=== PATIENT | female | born 1950 | race Caucasian/White ===

== ENCOUNTER 2021-01-30 16:19 | Emergency (ER) | payer MEDICARE, SELFPAY ==
--- NOTE | ~2021-01-30 | XR_ITS ---
XR chest 1V portable DATE: 01/30/2021 18:16 INDICATION: Left hand numbness. History of transient ischemic attack. TECHNIQUE: PA chest COMPARISON: None FINDINGS: Normal heart size. Is aortic calcification and mild tortuosity. No hilar or mediastinal enl argement. The lungs are moderately hyperinflated but clear of infiltrate or consolidation. No pleural effusion or pulmonary vascular congestion or pneumothorax. Degenerative spurring of the thoracic spine. Diffuse osteopenia. IMPRESSION: No active cardiopulmonary disease Aortic atherosclerosis Reviewed, dictated and finalized at location A.
[2021-01-30 17:12] VITALS: BP 149/91; PULSE 80; RESP 18; TEMP 36.8; O2SAT 96
--- NOTE | 2021-01-30 17:15 | ECG_ITS ---
Measurements Intervals Issue Rate: 72 P: -37 PA: 94 QRS: -4 QRSD: 83 T: 4 QT: 385 QTc: 424 Interpretive Statements ECTOPIC ATRIAL RHYTHM DELAYED PRECORDIAL R/S TRANSITION BORDERLINE T WAVE ABNORMALITY- ANTEROLAT/INF LEADS BASELINE ARTIFACT- I, II, III, AVR, AVL, AVF ABNORMAL ECG Electronically Signed On 01-30-2021 20:05:34 CDT by Mario Man D.O.
[2021-01-30 17:29] LABS: Basophils Absolute Auto 0.1 K/mm3 (0.0-0.1); Basophils Percent Auto 0.8 % (0.2-1.2); Eosinophils Absolute Auto 0.1 K/mm3 (0-0.3); Eosinophils Percent Auto 0.6 % (0-4.4); Hematocrit 38.1 % (37.0-47.0); Immature Granulocyte Absolute 0.05 K/mm3 (0.00-0.031); Immature Granulocyte Percent A 0.5 % (0-0.5); Lymphocytes Absolute Auto 2.06 K/mm3 (0.9-3.2); Lymphocytes Percent Auto 18.9 % (18.3-44.2); Mean Corpuscular HGB Conc 34.1 g/dl (32-36); Mean Corpuscular Hemoglobin 33.2 pg (26-34); Mean Corpuscular Volume 97.4 fl (80-100); Monocytes Percent Auto 9.3 % (2.6-8.5); Neutrophils Absolute Auto 7.6 K/mm3 (1.3-6.7); Neutrophils Percent Auto 69.9 % (45.5-73.1); Platelet Count Result 495 k/mm3 (150-375); Red Blood Count 3.91 M/mm3 (4.2-5.4); Red Cell Distribution Width 13.8 % (11.5-14.5); White Blood Count 10.9 K/mm3 (4.5-10.0)
[2021-01-30 17:55] LABS: Anion Gap 8 mmol/L (8-16); Blood Urea Nitrogen 21 mg/dL (7-17); Calcium 9.4 mg/dL (8.4-10.2); Carbon Dioxide 27 mmol/L (22-30); Chloride 100 mmol/L (98-107); Estimated CRCL calculation 37 ml/min; Estimated Glomerular Filt Rate 55; Glucose 115 mg/dL (65-110); Potassium 3.7 mmol/L (3.4-5.0); Sodium 135 mmol/L (137-145)
[2021-01-30 17:56] LABS: INR 0.9; Prothrombin Time 12.5 Seconds (11.1-14.7)
[2021-01-30 17:57] LABS: Partial Thromboplastin Time 25.7 SECONDS (22.3-36.8)
[2021-01-30 18:01] LABS: Troponin I < 0.012 ng/mL (0.000-0.034)
--- NOTE | 2021-01-30 21:04 | PC.NURSE ---
patient left from triage area before seeing provider
== END 2021-01-30 21:11 | disposition left against medical advice (07) ==
LOC: ANHED 21:11
PROVIDERS: Emergency Provider Emergency Medicine
DX: R20.0 Anesthesia of skin (principal); Z86.73 Personal history of transient ischemic attack (TIA), and cerebral infarction without residual deficits; R94.31 Abnormal electrocardiogram [ECG] [EKG]; I70.0 Atherosclerosis of aorta
CPT/HCPCS: 36415; 71045; 80048; 84484; 85025; 85610; 85730; 93005; 99199

== ENCOUNTER 2021-01-31 11:20 | Emergency (ER) | payer MEDICARE, SELFPAY ==
[2021-01-31] VITALS (29 sets, daily range): BP systolic 143–174; BP diastolic 73–83; PULSE 68–100; RESP 13–23; TEMP 36.4–36.8; O2SAT 96–100
--- NOTE | ~2021-01-31 | CT_ITS ---
EXAMINATION: CTA BRAIN/CAROTID DATE: 01/31/2021 13:34 INDICATION: Possible stroke presenting with right hand tingling TECHNIQUE: Computed tomographic angiography (CTA) of the head and neck was performed with 100 mL Omni paque-350 intravenous contrast. Multiplanar reconstructions and maximum intensity projection 3D-recon structions of the carotid arteries and of the intracranial arteries were created by the technologist on a separate workstation. Precontrast CT of the head was also obtained. Automated exposure control and iterative reconstruction technique were employed.The dose-length product was 1591.56 mGy-cm. COMPARISON: None. FINDINGS: Carotid arteries: There is 30% stenosis of the right carotid bulb relative to normal distal artery lumen diameter (NASC ET criteria). A cervical right internal carotid artery distal to the bulb is tortuous. There is ather osclerotic calcifications at the left carotid bulb with 0% stenosis of the left carotid bulb relative to normal distal artery lumen diameter. The cervical left internal carotid artery is also tortuous. Atherosclerotic calcifications at the normal caliber aortic arch and origins of the great vessels yesenia sing from the arch without hemodynamically significant stenosis. No dissection. Goiter with several l ikely benign subcentimeter thyroid nodules. Cervical soft tissues are otherwise unremarkable. Severe cervical spondylosis. Mild emphysema in the visualized upper lungs. Head: Small old lacunar infarct at the right lentiform nucleus. No acute intracranial hemorrhage, acute inf arction or abnormal extra axial fluid collection. There is mild scattered white matter hypoattenuatio n consistent with chronic small vessel ischemic disease. Ventricles are normal and symmetric. No mas s/mass effect. Mild mucosal thickening in the left maxillary, right sphenoid and bilateral ethmoid si nuses. The orbits and mastoid air cells are normal. Intracranial arteries The left vertebral artery is dominant. Persistent origin of the posterior cerebral arteries wit h diminutive basilar artery distal to the takeoff of the bilateral superior cerebellar arteries which supplies a diminutive P1 segment. The right posterior cerebral artery is also supplied by similar si zed right posterior communicating artery. There is a nearly indiscernible diminutive left P1 segment with the majority of the flow to the left posterior cerebral artery supplied by a larger caliber left posterior communicating artery. Atherosclerotic calcification is seen at the bilateral carotid sipho ns. There is no hemodynamically significant stenosis in the vertebral, basilar and internal carotid a rteries. Bilateral A1 segments are patent. Cerebral arterial arborization appears symmetric. IMPRESSION: 1. 30% stenosis of the right carotid bulb relative to normal distal artery lumen diameter (NASCET cri teria). 2. 0% stenosis of the left carotid bulb relative to normal distal artery lumen diameter. 3. Normal variant persistent origin of the posterior cerebral arteries. Otherwise unremarkable cerebral CT angiogram. 4. Small old lacunar infarct at the right lentiform nucleus and mild scattered white matter hypoatten uation consistent with chronic small vessel ischemic disease. No acute intracranial process. 5. Mild emphysema. 6. Severe cervical spondylosis. Reviewed, dictated and finalized at location A. IMPRESSION: 1. 30% stenosis of the right carotid bulb relative to normal distal artery lume n diameter (NASCET criteria). 2. 0% stenosis of the left carotid bulb relative to normal distal artery lumen diameter. 3. Normal variant persistent origin of the posterior cerebral arteries. O therwise unremarkable cerebral CT angiogram. 4. Small old lacuna
--- NOTE | 2021-01-31 11:45 | ECG_ITS ---
Measurements Intervals [place] Rate: 83 P: 70 OK: 153 QRS: -41 QRSD: 85 T: 58 QT: 347 QTc: 409 Interpretive Statements SINUS RHYTHM POSSIBLE LEFT ATRIAL ENLARGEMENT LEFT AXIS DEVIATION CANNOT RULE OUT SEPTAL INFARCT, AGE INDETERMINATE BORDERLINE T WAVE ABNORMALITY- ANTEROLATERAL LEADS BASELINE ARTIFACT- V3-V6 ABNORMAL ECG Electronically Signed On 01-31-2021 12:20:47 CDT by Mario Man D.O.
--- NOTE | 2021-01-31 12:52 | ED.GENADULT ---
HPI - General Adult General Chief complaint: Unspecified Stated complaint: SENT BY DR HERRERA Time Seen by Provider: 01/31/21 12:08 Source: patient and RN notes reviewed Mode of arrival: ambulatory Limitations: no limitations History of Present Illness HPI narrative: This is a 70 year old female with history of hypertension, anxiety and TIA who presents for evaluation of possible TIA. She states she developed tingling to left hand on and it was similar to previous episode of TIA 5 years ago. She came to [place] yesterday for evaluation but she had to leave because ER was too long. She states she was told by PCP office to come to ER due to abnormal EKG. Patient denies having chest pain, shortness of breath, nausea, vomiting, focal weakness, blurred vision. She denies having any symptoms today at all. Related Data Home Medications Medication Instructions Recorded Confirmed aspirin [Adult Aspirin Regimen] 81 mg PO DAILY 04/10/19 01/31/21 calcium carbonate [Calcium 500] 500 mg PO DAILY 04/10/19 01/31/21 Allergies Allergy/AdvReac Type Severity Reaction Status Date / Time erythromycin base Allergy Intermediate Nausea and Verified 01/31/21 11:45 Vomiting venlafaxine Allergy Intermediate GI upset Verified 01/31/21 11:45 Review of Systems Review of Systems: All systems reviewed & are unremarkable except as noted in HPI and below PMFSH Past Medical History Medical History Anxiety Body mass index (BMI) less than 16.5 Body mass index (BMI) less than or equal to 19 in adult Chronic depression Chronic diarrhea HTN (hypertension) Irritable bowel syndrome with diarrhea Microscopic colitis, unspecified Seasonal allergic rhinitis Tobacco use disorder, continuous Vitamin B12 deficiency anemia Vitamin D insufficiency Weight loss Family History Family History (Updated 09/22/18 @ 10:26 by DOCTOR UNKNOWN) Father Patient's father is Family history of malignant neoplasm, Onset Age: 65 Diabetes mellitus Hypertension Family history of alcoholism Family history of primary malignant neoplasm of liver, Onset Age: 65 Grandparent Cerebrovascular accident, Onset Age: 79 Sibling Family history of mental disorder Mother Family history of alcoholism Acute myocardial infarction, Onset Age: 70 Social History Social History Smoking packs per day: 0.5 Smoking cigarettes per day: 10.0 Years smoked: 40 Smoking pack-years: 20.00 Smoking status: Current every day smoker Tobacco type: cigarettes Alcohol intake: never Substance use: never Substance use type: does not use Exam Narrative: GENERAL: Well-appearing,thin, and in no acute distress. HEAD: Normocephalic, atraumatic EYES: PERRLA and EOMI, conjunctiva clear without discharge NOSE: Nares clear, no rhinorrhea or epistaxis THROAT:Mucous membranes moist, Oropharynx normal without erythema, exudate, peritonsillar swelling or fluctuance NECK: Supple, without lymphadenopathy or mass RESPIRATORY: No respiratory distress, Airway patent, Respirations non-labored, Clear to auscultation without rales, rhonchi or wheeze HEART: Regular rate and rhythm. No murmur heard. Normal peripheral pulses. ABDOMEN: Soft, nontender, nondistended, normal active bowel sounds. No masses. No rebound or guarding, No organomegaly. EXTREMITIES: No edema, normal strength with full range of motion. SKIN: Warm, dry, without rash, there are bruising to extremities NEURO: Alert and oriented x3. CN 2-12 grossly intact. No focal deficits. PSYCH: Normal mood and affect. Const: General: cooperative Neuro: Cognition (Neuro): normal cognition Speech: normal speech Motor exam (neuro): 5/5 motor strength present throughout, Pronator motor function not present and No tremor noted Sensory Exam: normal se
[2021-01-31 14:01] LABS: Alanine Aminotransferase 14 U/L (4-35); Alkaline Phosphatase 76 U/L (38-126); Anion Gap 4 mmol/L (8-16); Aspartate Amino Transferase 27 U/L (14-36); Bilirubin,Total 0.5 mg/dL (0.2-1.3); Blood Urea Nitrogen 19 mg/dL (7-17); Calcium 9.2 mg/dL (8.4-10.2); Carbon Dioxide 30 mmol/L (22-30); Chloride 101 mmol/L (98-107); Estimated CRCL calculation 41 ml/min; Estimated Glomerular Filt Rate > 60; Glucose 166 mg/dL (65-110); Potassium 3.7 mmol/L (3.4-5.0); Sodium 135 mmol/L (137-145)
[2021-01-31 14:14] LABS: Troponin I < 0.012 ng/mL (0.000-0.034)
[2021-01-31 14:49] LABS: Add Urine Microscopic? YES; Appearance Urine Clear (Clear); Bacteria Urine Trace /hpf; Bilirubin Urine Negative (Negative); Blood Urine Negative (Negative); Color Urine Yellow (Yellow); Glucose Urine UA Negative (Negative); Ketones Urine Negative (Negative); Leukocyte Esterase Ur 2+ LEU/UL (Negative); Mucus Urine Rare /lpf; Nitrate Urine Negative (Negative); Protein Urine Negative (Negative); Squamous Epithelial Cell Urine Occasional /hpf (Few); Urobilinogen Urine Negative mg/dL (<2.0)
[2021-01-31 14:50] LABS: Specific Grav Ur 1.042 (1.001-1.035)
== END 2021-01-31 15:46 | disposition home or self-care (01) ==
PROVIDERS: Emergency Provider General Practice; PCP Family Medicine
DX: R20.2 Paresthesia of skin (principal); F41.9 Anxiety disorder, unspecified; N39.0 Urinary tract infection, site not specified; I10 Essential (primary) hypertension; F32.9 Major depressive disorder, single episode, unspecified; F17.210 Nicotine dependence, cigarettes, uncomplicated; Z87.19 Personal history of other diseases of the digestive system; Z86.73 Personal history of transient ischemic attack (TIA), and cerebral infarction without residual deficits; Z79.82 Long term (current) use of aspirin
CPT/HCPCS: 36415; 70496; 70498; 80053; 81001; 84484; 87086; 87088; 93005; 99284; Q9967

== ENCOUNTER → 2022-01-01 12:01 | Outpatient (CLI) | payer MEDICARE, SELFPAY ==
--- NOTE | ~2022-01-01 | MM_ITS ---
EXAMINATION: MM screening ciara BI w clarisa HISTORY: Screening mammogram TECHNIQUE: Craniocaudal and mediolateral oblique 3-D tomosynthesis images were obtained and synthetic 2-D images were generated. Bilateral rotated lateral CC views are in the Reason for CAD analysis was submitted and interpreted. COMPARISON: 07/2015, 04/2016 bilateral screening mammogram examination BREAST PARENCHYMAL COMPOSITION: The breasts are heterogeneously dense, which may obscure small masses . FINDINGS: There is no evidence of suspicious mass, calcification, or architectural distortion to sugg est malignancy in either breast. There has been no suspicious interval change. IMPRESSION: 1. No mammographic evidence of malignancy. 2. Recommend routine screening mammography in one year. BI-RADS Category 1: Negative Reviewed, dictated and finalized at location A.
== END ==
PROVIDERS: PCP Family Medicine; Visit Provider Obstetrics & Gynecology Gynecology
DX: Z12.31 Encounter for screening mammogram for malignant neoplasm of breast (principal)
CPT/HCPCS: 77063; 77067

== ENCOUNTER → 2023-03-09 15:51 | Outpatient (CLI) | payer MEDICARE, SELFPAY ==
--- NOTE | ~2023-03-09 | MM_ITS ---
EXAMINATION: MM screening ciara BI w clarisa HISTORY: Screening mammogram TECHNIQUE: Craniocaudal and mediolateral oblique 3-D tomosynthesis images were obtained and synthetic 2-D images were generated. CAD analysis was submitted and interpreted. COMPARISON: 01/01/2022, 07/29/2017 bilateral screening mammogram examinations BREAST PARENCHYMAL COMPOSITION: The breasts are heterogeneously dense, which may obscure small masses . FINDINGS: There is no evidence of suspicious mass, calcification, or architectural distortion to sugg est malignancy in either breast. There has been no suspicious interval change. IMPRESSION: 1. No mammographic evidence of malignancy. 2. Recommend routine screening mammography in one year. BI-RADS Category 1: Negative Reviewed, dictated and finalized at location A.
== END ==
PROVIDERS: PCP Obstetrics & Gynecology Gynecology; Visit Provider Obstetrics & Gynecology Gynecology
DX: Z12.31 Encounter for screening mammogram for malignant neoplasm of breast (principal)
CPT/HCPCS: 77063; 77067

== ENCOUNTER 2025-05-15 11:52 | Outpatient (CLI) | payer MEDICARE, SELFPAY ==
--- NOTE | ~2025-05-15 | XR_ITS ---
EXAMINATION: XR ribs BI 3V w CXR 2V DATE: 05/15/2025 12:11 INDICATION: Chest pain TECHNIQUE: AP and lateral views of the chest and 3 views of the right ribs and 3 views of the left ribs were obtained. COMPARISON: Chest radiograph dated 01/30/21 FINDINGS: Acute mildly displaced fractures of the lateral left fifth-eighth ribs. Nondisplaced mildly angulated fractures of the anterior left seventh-ninth ribs with appearance favoring acute over chronic. No right-sided rib fractures. New airspace opacities at the lateral left lung base most likely atelectasis related to splinting. Minimal curvilinear discoid atelectasis at the right costophrenic angle. No other airspace opacities, pulmonary edema, pleural effusion or pneumothorax. Heart size is normal. Calcified left hilar lymph nodes consistent with old granulomatous disease..No pneumothorax. No focal infiltrates, pleural effusion or pulmonary edema. Cardiomediastinal silhouette is normal. IMPRESSION: 1. Several acute left-sided rib fractures with opacities at the left costal phrenic angle likely related to and atelectasis secondary to splinting. Reviewed, dictated and finalized at location A. D PATTERN SETTER IMPRESSION: 1. Several acute left-sided rib fractures with opacities at the left costal phr enic angle likely related to and atelectasis secondary to splinting.
== END 2025-05-15 11:53 | disposition home or self-care (01) ==
LOC: MICIMG 11:54
PROVIDERS: PCP Family Medicine; Visit Provider Family Medicine
DX: S22.42XA Multiple fractures of ribs, left side, initial encounter for closed fracture (principal); X58.XXXA Exposure to other specified factors, initial encounter; J90 Pleural effusion, not elsewhere classified; R07.89 Other chest pain
CPT/HCPCS: 71046; 71110